=== PATIENT | female | born 1945 | race Caucasian/White ===

== ENCOUNTER 2021-07-07 13:00 | Outpatient (CLI) | payer MEDICARE | END 2021-07-07 13:01 | disposition home or self-care (01) | PROVIDERS: ATTEND Internal Medicine | DX: R07.9 Chest pain, unspecified (principal) | CPT/HCPCS: 93017 ==

== ENCOUNTER 2022-10-20 17:30 | Outpatient (CLI) | payer MEDICARE | END 2022-10-20 17:31 | disposition home or self-care (01) | LOC: SLEEPLAB 17:30 | PROVIDERS: ATTEND Internal Medicine | DX: G47.33 Obstructive sleep apnea (adult) (pediatric) (principal); G47.00 Insomnia, unspecified; E66.9 Obesity, unspecified; K21.9 Gastro-esophageal reflux disease without esophagitis; R35.1 Nocturia; R53.83 Other fatigue | CPT/HCPCS: 95800 ==